=== PATIENT | male | born 1980 | race African-American/Black ===

== ENCOUNTER 2022-01-20 04:05 | Day surgery (SDC) | payer OTHER ==
[2022-01-16 14:48] VITALS: BMI 31.5
[2022-01-20 07:02] VITALS: TEMP 97.9
[2022-01-20] MEDS ORDERED: MIDAZOLAM HCL 2 MG/2 ML SINGLE DOSE VIAL ONE ×2 (10:01→10:15)
[2022-01-20] MEDS ORDERED: LIDOCAINE HCL 1% PRESERVATIVE FREE - 30ML VIAL EP ONE (10:18)
[2022-01-20] MEDS ORDERED: DEXAMETHASONE SOD PHOSPHATE 10 MG/1 ML VIAL IVPUSH ONE ×2 (10:19)
[2022-01-20] MEDS ORDERED: IOHEXOL 180 MG/1 ML ML IJ ONE (10:19)
[2022-01-20] MEDS ORDERED: BUPIVACAINE HCL/PF 2.5 MG/ML - 30 ML VIAL IJ ONE (10:19)
[2022-01-20] MEDS ORDERED: PROPOFOL 20 ML ONE (10:21)
[2022-01-20 13:12] VITALS: BP 145/92; PULSE 80
== END 2022-01-20 11:25 | disposition home or self-care (01) ==
LOC: JASU-SURG 04:05
PROVIDERS: ATTEND Physical Medicine & Rehabilitation
PROC: 3E0R33Z Introduction of Anti-inflammatory into Spinal Canal, Percutaneous Approach (ICD-10-PCS; 2022-01-20)
PROC: B01BYZZ Fluoroscopy of Spinal Cord using Other Contrast (ICD-10-PCS; 2022-01-20)
PROC: 3E0R3BZ Introduction of Anesthetic Agent into Spinal Canal, Percutaneous Approach (ICD-10-PCS; principal; 2022-01-20 09:00)
DX: M54.16 Radiculopathy, lumbar region (principal)
CPT/HCPCS: 76000-TC-FY; J1100

== ENCOUNTER 2022-04-08 14:03 | Emergency (ER) | payer OTHER ==
[2022-04-08 14:33] VITALS: BP 141/92; PULSE 70; RESP 18; TEMP 98.2; BMI 29.1
[2022-04-08] MEDS ORDERED: IBUPROFEN 600 MG TABLET (FP) PO ONE ×2 (16:01→16:02)
== END 2022-04-08 16:22 | disposition home or self-care (01) ==
LOC: JERFT 14:03
DX: S62.304A Unspecified fracture of fourth metacarpal bone, right hand, initial encounter for closed fracture (principal); S62.603A Fracture of unspecified phalanx of left middle finger, initial encounter for closed fracture; W23.0XXA Caught, crushed, jammed, or pinched between moving objects, initial encounter
CPT/HCPCS: 73130-TC-LT-FY; 99283-25